=== PATIENT | female | born 1955 | race Caucasian/White ===

== ENCOUNTER → 2016-04-26 | Outpatient (CLI) | payer MEDICARE, OTHER ==
--- NOTE | 2016-04-26 13:09 | KCIC ---
PROCEDURE Bilateral digital screening mammogram. HISTORY 60-year-old female presents for screening mammography. TECHNIQUE Full field digital craniocaudal and mediolateral oblique views of both breasts are obtained. Computer-aided detection is applied. COMPARISON 08/10/2009 FINDINGS Breast parenchymal composition: Level B - Scattered fibroglandular densities. There is no suspicious mass, calcification or architectural distortion within either breast. IMPRESSION BI-RADS category 2: Benign finding. Annual mammography is recommended. Mammography is not 100% sensitive in detecting breast cancer. Therefore, a self breast exam and a clinical breast exam are very important. A negative mammogram does not negate a clinically suspicious finding and should not result in a delay in biopsying a clinically suspicious abnormality. This patient's information has been entered into a reminder system for the patient to be notified with the results of this examination and a target date for her next mammograms. Electronically signed by: Zee Hobson (Apr 26, 2016 13:07:48)
== END | disposition home or self-care (01) ==
LOC: KCIC MAMMO 12:33
PROVIDERS: ATTEND Family Medicine
DX: Z12.31 Encounter for screening mammogram for malignant neoplasm of breast (principal)
CPT/HCPCS: G0202; 77067

== ENCOUNTER → 2016-06-13 | Outpatient (CLI) | payer MEDICARE, OTHER ==
--- NOTE | 2016-06-13 14:57 | KCIC ---
Ultrasound pelvis with transvaginal Indication: Postmenopausal bleeding. Transabdominal and transvaginal pelvic sonography was performed. The uterus measures 8.7 x 5.4 x 4.1 centimeters. The endometrium is abnormally thickened at 17 millimeters. Endometrium is heterogeneous. There are cystic regions within the endometrium. Previously the endometrium measured 15 millimeters on the exam from 05/16/2014. No myometrial mass is detected. The right ovary measures 2.6 x 2.1 x 1.6 centimeters and the left ovary measures 1.5 x 1.8 x 2.3 centimeters. Impression: Continued abnormally thickened and heterogeneous appearance to the endometrium when compared with examination from approximately 2 years earlier. While this could be on the basis of hyperplasia, endometrial polyp or neoplasm cannot be entirely excluded. Electronically signed by: Chris Gomez MD (Jun 13, 2016 14:55:39)
== END | disposition home or self-care (01) ==
LOC: KCIC US 12:05
PROVIDERS: ATTEND Family Medicine
DX: N95.0 Postmenopausal bleeding (principal)
CPT/HCPCS: 76830; 76856

== ENCOUNTER 2016-10-14 08:32 | Inpatient (IN) | payer MEDICARE, OTHER ==
[~2016-10-14] VITALS: Ht 172.7 cm; Wt 110.0 kg
[2016-10-14] VITALS (10 sets, daily range): BP systolic 112–145; BP diastolic 56–75
[~2016-10-14 08:32] MED LIST: ASPI-482 PO; BIOT1CAP3 PO; BUPIVAC MPF-EPI 0.5%-1:200000 30 ML VIAL. ONE; CHOL100013 PO; EYE; HYDR12.53 PO; HYDROmorphone 2 MG/ML VIAL IV PRN; INSU100V13 SQ; IOHEXOL 300 MG/ML 50 ML VIAL. ONE; IV RINGERS,LACTATED 1000ML 1,000 ML IV SCH; LIDOCAINE 1% 1 ML SYRINGE. ID PRN; MECL12.52 PO; METF-620 PO; METO50TA2 PO; MORPHINE SULFATE 2 MG/ML DISP.SYRIN. IV PRN; MULT-208 PO; OMEG1CAP6 PO; OMEP20CA9 PO; ONDANSETRON PF 4 MG/2 ML VIAL. IV PRN; PROCHLORPERAZINE 10 MG/2 ML VIAL. IV PRN; UBID30CA9 PO; VIT59LIQ SL; fentaNYL PF VIAL 100 MCG/2 ML VIAL IV PRN
[2016-10-14] MEDS ORDERED: LIDOCAINE 2% PF Vial for OR 5 ML VIAL. ONE (08:38)
[2016-10-14] MEDS ORDERED: PROPOFOL 20 ML IV ONE ×3 (08:38→09:54)
[2016-10-14] MEDS ORDERED: DEXAMETHASONE SOD PHOS 20 MG/5 ML VIAL. ONE (08:39)
[2016-10-14] MEDS ORDERED: fentaNYL PF VIAL 250 MCG/5 ML VIAL ONE (08:39)
[2016-10-14] MEDS ORDERED: ONDANSETRON PF 4 MG/2 ML VIAL. ONE (08:39)
[2016-10-14] MEDS ORDERED: SUCCINYLCHOLINE 200 MG/10 ML VIAL. ONE (08:39)
[2016-10-14] MEDS ORDERED: NEOSTIGMINE 10 MG/10 ML VIAL. ONE (09:43)
[2016-10-14] MEDS ORDERED: GLYCOPYRROLATE 1 MG/5 ML VIAL. ONE (09:43)
[2016-10-14] MEDS ORDERED: EPINEPHrine 1 MG/ML VIAL ONE (09:45)
[2016-10-14] MEDS ORDERED: ESMOLOL 100 MG/10 ML VIAL. IV ONE (09:52)
[2016-10-14] MEDS ORDERED: SEVOFLURANE 31 TO 60 MINUTES. IH ONE (10:13)
[2016-10-14] MEDS ORDERED: SURGICEL HEMOSTAT 4X8 EACH. ONE (10:58)
[2016-10-14] MEDS ORDERED: fentaNYL PF VIAL 100 MCG/2 ML VIAL ONE ×2 (10:59→12:20)
--- NOTE | 2016-10-14 11:00 | RAD ---
Intraoperative cholangiogram, 10/14/2016: History: Cholecystectomy 4 spot films surgery are presented for review. Contrast has been injected into the cystic duct remnant. 18 seconds of fluoroscopy time was utilized. There is good flow of contrast into the duodenum at the ampulla. No filling defect is seen in the common duct to suggest a retained calculus. The incompletely opacified intrahepatic ducts are unremarkable. Minimal contrast extravasation at the catheter insertion site in the cystic duct is likely on a technical basis. IMPRESSION: No significant abnormality is detected.
--- NOTE | 2016-10-14 11:32 | EKG ---
[facility] [address] [place] [address] Test Date: 2016-10-14 Test Time: 11:29:42 Pat Name: CAROLIN COOK Department: Room: Gender: F [employer] Handler: DIGNA : 1955 Requested By: SIVA BARILLAS Order Number: [id number] Reading MD: Rebecca Paulino Measurements Intervals [place] Rate: 64 P: -49 [place]: 214 QRS: -11 QRSD: 110 T: 114 QT: 460 QTc: 474 Interpretive Statements SINUS RHYTHM LEFTWARD AXIS ST & T ABNORMALITY, CONSIDER HIGH LATERAL ISCHEMIA ABNORMAL ECG Electronically Signed On 10-16-2016 20:15:59 CDT by Rebecca Paulino
[2016-10-14] MEDS: fentaNYL PF VIAL 100 MCG/2 ML VIAL IV PRN ×4 (11:43→23:47)
[2016-10-14] MEDS ORDERED: ceFAZolin 2GM PREMIX 2 GM/50 ML BAG IV ONE (12:00)
--- NOTE | 2016-10-14 12:36 | PDOC ---
BRIEF OPERATIVE NOTE Date: Oct 14, 2016 Pre-Op Diagnosis symptomatic cholelithiasis Post-Op Diagnosis same Procedure Performed l/s cholecystectomy with cholangiograms Surgeon Ishmael Algology Teacher Maryse CUTLER Anesthesia Type: General Blood Loss 25cc IV Fluid 800cc Specimens Obtained GB Findings mildly edematous GB, normal grams. Complications short run of SVT at start of case OPerative Note Wk # [id number] MINISTERIO PUGA MD Oct 14, 2016 12:36
--- NOTE | 2016-10-14 13:04 | OP ---
DATE OF SURGERY: 10/14/2016 PREOPERATIVE DIAGNOSIS: Symptomatic cholelithiasis. POSTOPERATIVE DIAGNOSIS: Symptomatic cholelithiasis. PROCEDURE: Laparoscopic cholecystectomy with cholangiogram. SURGEON: Palmer Puga MD CHIEF SECURITY OFFICER: HE Esposito ANESTHESIA: General endotracheal. ESTIMATED BLOOD LOSS: 25 mL. INTRAVENOUS FLUID: 800 mL. INDICATIONS: The patient is a 60-year-old with previous ventral incisional hernia repair, who has gallstones and right upper quadrant pain. She is brought for cholecystectomy. OPERATIVE FINDINGS: Omental adhesions were present in the lower abdomen from previous hernia repair. The liver was a little generous. The gallbladder was mildly edematous with a tongue of liver extending on to the fundus. Remainder of the abdomen failed to reveal obvious abnormalities. DESCRIPTION OF PROCEDURE: The patient was brought to the operating suite, given a general endotracheal anesthetic and the abdomen was prepped and draped in usual sterile fashion. A supraumbilical incision was chosen infiltrated with 0.5% Marcaine with epinephrine and incised and a 5 mm Visiport used to gain access into the abdominal cavity, taking care to avoid injury to abdominal contents. Pneumoperitoneum was established. Camera inserted and inspection carried out with results as noted above. With the table in reverse Trendelenburg rolled to the left, the epigastric, midclavicular, and lateral ports were placed under direct vision. The gallbladder was retracted superolaterally and omental adhesions were carefully taken down with cautery and blunt dissection, avoiding injury to the adjacent bowel. This allowed exposure of the cystic duct and cystic artery. The duct was clipped on the gallbladder side. Cholangiograms were made. These were normal. In light of this, the catheter was removed. The cystic duct was clipped x 3 and divided, taking care to avoid injury or compromise the common duct. The cystic artery was clipped and divided and the gallbladder was freed from the bed with cautery dissection and placed in an EndoCatch bag. Hemostasis obtained in the fossa with cautery and a small piece of Surgicel. A 19-Angolan round Miguel Angel drain was brought to the epigastric port out the lateral ports, sewn to the skin with silk stitch and left in the subhepatic space for postoperative drainage. Table returned to level. Gallbladder delivered through the epigastric incision. Epigastric incision closed with interrupted 0 Vicryl suture. Intra-abdominal pressure decreased to 6 cm of water. No bleeding from the epigastric closure or from the midclavicular or lateral port site or the drain site. Abdomen decompressed, camera slowly removed, no bleeding seen. Skin incisions closed with subcuticular 4-0 Monocryl. Steri-Strips and sterile dressings applied. The patient awakened from her anesthetic and taken to the recovery room in satisfactory condition. PALMER PUGA MD DR: SAMM/yeison JOB#: [id number] / [id number]
[2016-10-14] MEDS ORDERED: ONDANSETRON PF 4 MG/2 ML VIAL. IV PRN (13:15)
[2016-10-14] MEDS ORDERED: INSULIN ASPART 300 UNITS/3 ML INSULN.PEN SQ SCH (13:15)
[2016-10-14] MEDS ORDERED: diphenhydrAMINE 50 MG/ML VIAL IV PRN (13:15)
[2016-10-14] MEDS ORDERED: HYDROmorphone 2 MG/ML VIAL IV PRN (13:15)
[2016-10-14] MEDS ORDERED: INSULIN ASPART 100 UNIT/ML 10ML VIAL. SQ ONE ×2 (13:15→13:30)
[2016-10-14] MEDS ORDERED: 0.9 % SODIUM CHLORIDE 10 ML DISP.SYRIN. IV PRN (13:15)
[2016-10-14] MEDS ORDERED: oxyCODONE/APAP 5/325 1 TAB TABLET PO PRN (13:15)
[2016-10-14] MEDS ORDERED: diphenhydrAMINE HCL 25 MG CAPSULE PO PRN (13:15)
[2016-10-14] MEDS ORDERED: DEXTROSE 50% 25 GM / 50ML DISP.SYRIN. IV PRN (13:15)
[2016-10-14] MEDS: OMEGA-3 FATTY ACIDS/FISH OIL 1,000 MG CAPSULE. PO SCH ×2 (14:00→21:51)
[2016-10-14] MEDS: POTASSIUM CL 20MEQ-0.45% NACL 1,000 ML IV SCH (14:52)
[2016-10-14] MEDS: MECLIZINE HCL 12.5 MG TABLET. PO SCH ×2 (14:52→21:51)
[2016-10-14] MEDS: oxyCODONE/APAP 5/325 1 TAB TABLET PO PRN ×2 (17:20→22:03)
[2016-10-14] MEDS ORDERED: INSULIN DETEMIR 300 UNITS/3 ML INSULN.PEN. SQ SCH (21:00)
[2016-10-14] MEDS: DOCUSATE SODIUM 100 MG CAPSULE. PO SCH (21:51)
[2016-10-14] MEDS: METOPROLOL TART IMMED RELEASE 50 MG TABLET. PO SCH (21:54)
[2016-10-15 03:07] VITALS: BP 126/54
[2016-10-15] MEDS: POTASSIUM CL 20MEQ-0.45% NACL 1,000 ML IV SCH (04:05)
[2016-10-15] MEDS: oxyCODONE/APAP 5/325 1 TAB TABLET PO PRN ×3 (04:10→14:03)
[2016-10-15 07:00] VITALS: BP 125/70
[2016-10-15] MEDS ORDERED: PANTOPRAZOLE 40 MG TABLET.DR. PO SCH (07:30)
[2016-10-15] MEDS ORDERED: ASPIRIN ENTERIC COATED 81 MG TABLET.DR. PO SCH (08:00)
[2016-10-15] MEDS: MECLIZINE HCL 12.5 MG TABLET. PO SCH ×2 (08:29→14:02)
[2016-10-15] MEDS: DOCUSATE SODIUM 100 MG CAPSULE. PO SCH (08:29)
[2016-10-15] MEDS: OMEGA-3 FATTY ACIDS/FISH OIL 1,000 MG CAPSULE. PO SCH ×2 (08:30→14:02)
[2016-10-15] MEDS: METOPROLOL TART IMMED RELEASE 50 MG TABLET. PO SCH (08:30)
[2016-10-15] MEDS ORDERED: hydroCHLOROthiazide 12.5 MG CAPSULE PO SCH (09:00)
--- NOTE | 2016-10-15 10:11 | PDOC ---
NATHAN URENA INTERNATIONAL PROJECT ENGINEER 10/15/16 1011: SURGICAL PROGRESS NOTE Subjective tolerating clears pain improved today no n/v urinating Vital Signs Vital Signs Date Time Temp Pulse Resp B/P (MAP) Pulse Ox O2 Delivery O2 Flow Rate FiO2 10/15/16 08:34 Room Air 10/15/16 08:30 57 125/70 10/15/16 08:00 2.0 10/15/16 07:00 97.9 16 97 97.9 I&O Intake and Output 10/15/16 07:00 Intake Total 5190 ml Output Total 50 ml Balance 5140 ml Intake Oral 720 ml IV Total 4470 ml Output Drainage Total 50 ml # Voids 3 General: Alert, Oriented X3, Cooperative, No acute distress Abdomen: Soft, Other (incisional TTP, zander serosang) Labs Laboratory Tests Test 10/14/16 09:10 10/14/16 11:10 10/14/16 13:06 10/14/16 21:52 Glucose (Fingerstick) 169 mg/dL (70-99) 235 mg/dL (70-99) 246 mg/dL (70-99) 325 mg/dL (70-99) Test 10/15/16 07:30 Glucose (Fingerstick) 218 mg/dL (70-99) Laboratory Tests Test 10/14/16 11:10 10/14/16 13:06 10/14/16 21:52 10/15/16 07:30 Glucose (Fingerstick) 235 mg/dL (70-99) 246 mg/dL (70-99) 325 mg/dL (70-99) 218 mg/dL (70-99) Problem List s/p lap cordell advance diet cardiac consult pending--short run of SVT intraoperatively Problems: MINISTERIO PUGA MD 10/15/16 1331: SURGICAL PROGRESS NOTE Assessment/Plan pt seen and examined agree with above appreciate cardiology input await echo results Problems: NATHAN URENA APRN Oct 15, 2016 10:11 MINISTERIO PUGA MD Oct 15, 2016 13:31
[2016-10-15 11:00] VITALS: BP 150/60
--- NOTE | 2016-10-15 11:44 | PDOC2 ---
GALA CHRISTY POST [facility] REGISTERED NURSE 10/15/16 1144: CARDIAC CONSULT DATE OF CONSULT Date of Consult DATE: 10/15/16 TIME: 11:28 REASON FOR CONSULT Reason for Consult: SVT REFERRING PHYSICIAN Referring Physician: Dr. Quiñones SOURCE Source: Chart review, Patient HISTORY OF PRESENT ILLNESS HISTORY OF PRESENT ILLNESS This is a 60 yo female who presented for elective cholecystectomy. Had short run of SVT intraoperatively, which prompted this consult. No further episodes noted on telemetry. Patient denies any chest pain, palpitations, dizziness, diaphoresis, SOA, LE edema, or nausea/vomiting. Does have some mild incisional pain, presently. H/o aortic valve replacement in 2012 at [place]. Reports having normal cardiac cath at that time. Has recently been following with after school program assistant at [facility]. No recent echo. Report compliance with medication. Took metoprolol morning of surgery. PAST MEDICAL HISTORY Cardiovascular: HTN, Hyperlipidemia, Valve insufficiency (s/p bioprosthetic aortic valve replacement ) Pulmonary: No pertinent hx GI: No pertinent hx Heme/Onc: No pertinent hx Hepatobiliary: No pertinent hx Psych: Anxiety Musculoskeletal: Osteoarthritis Rheumatologic: No pertinent hx Infectious disease: No pertinent hx ENT: No pertinent hx Renal/: Chronic renal insuff Endocrine: Diabetes Dermatology: No pertinent hx PAST SURGICAL HISTORY Past Surgical History: Cholecystectomy, Tubal Ligation, Other (valve replacement ) FAMILY HISTORY Family History: Cancer (breast), Hypertension SOCIAL HISTORY Smoke: Quit (recently ) ALCOHOL: none Drugs: None Lives: with Family CURRENT MEDICATIONS CURRENT MEDICATIONS Current Medications Medications (Trade) Dose Ordered Sig/Mariano Route PRN Reason Start Time Stop Time Status Last Admin Dose Admin Potassium Chloride/Sodium Chloride 1,000 ml @ 75 mls/hr [id number] IV 10/14/16 13:04 10/15/16 04:05 Oxycodone/ Acetaminophen (Percocet 5/325) 2 tab PRN Q4HRS PRN PO MODERATE PAIN, SEVERE PAIN 10/14/16 13:15 10/15/16 08:34 Docusate Sodium (Colace) 100 mg BID PO 10/14/16 21:00 10/15/16 08:29 Insulin Aspart (NovoLOG VIAL) 6 unit 1X ONCE SQ 10/14/16 13:30 10/14/16 13:31 DC 10/14/16 13:23 Aspirin (Ecotrin) 81 mg DAILYWBKFT PO 10/15/16 08:00 10/15/16 08:29 Hydrochlorothiazide (Microzide) 12.5 mg DAILY PO 10/15/16 09:00 10/15/16 08:30 Meclizine HCl (Antivert) 12.5 mg TID PO 10/14/16 14:00 10/15/16 08:29 Metformin HCl (Glucophage) 1,000 mg BIDWMEALS PO 10/14/16 17:00 10/15/16 08:30 Metoprolol Tartrate (Lopressor) 50 mg BID PO 10/14/16 21:00 10/15/16 08:30 Fish Oil (Fish Oil) 1,000 mg TID PO 10/14/16 14:00 10/15/16 08:30 Insulin Detemir (Levemir) 76 units QHS SQ 10/14/16 21:00 10/14/16 21:59 Pantoprazole Sodium (Protonix) 40 mg DAILYAC PO 10/15/16 07:30 10/15/16 06:29 ALLERGIES ALLERGIES: Coded Allergies: lisinopril (Verified Adverse Reaction, Intermediate, COUGH, 10/14/16) simvastatin (Verified Adverse Reaction, Intermediate, WEAKNESS, 10/14/16) ROS Review of System 14 point ROS conducted with pertinent positives noted above in HPI. PHYSICAL EXAM General: Alert, Oriented X3, Cooperative, No acute distress, Other HEENT: Atraumatic, Mucous membr. moist/pink Lungs: Clear to auscultation, Normal air movement Heart: Regular rate, Normal S1, Normal S2, Other (3/6 systolic murmur) Abdomen: Soft, Other (surgical lap sites) Extremities: No edema, Normal pulses Skin: No significant lesion Neuro: Normal speech, Sensation intact Psych/Mental Status: Mental status NL, Mood NL MUSCULOSKELETAL: Osteoarthritic changes both hands VITALS VITALS Vital Signs Date Time Temp Pulse Resp B/P (MAP) Pulse Ox O2 Delivery O2 Flow Rate FiO2 10/15/16 08:34 Room Air 10/15/16 08:30 57 125/70 10/15/16 08:00 2.0 10/15/16 07:00 97.9 16 97 97.9 LABS Lab: Laboratory Tests Test 10/14/16 13:06 10/14/16 21:52 10/15/16 07:30 Glucose (Fingerstick) 246 mg/dL (70-99) 325 mg/dL (70-99) 218 mg/dL (70-99) ASSESSMENT/PLAN ASSESSMENT/PLAN 1. Ventricular arrhythmia 2. S/p cholecystectomy 3. Hypertension 4. Hyperlipidemia 5. Bioprosthetic aortic valve replacement 6. Diabetes Recommendations Continue BB for rate control. Check BMP, Mg, TSH, lipids Obtain echo to assess LV function/evaluate aortic valve. Supportive care Routine post-operative management Problems: DURGA HALE MD 10/16/16 0841: CARDIAC CONSULT ALLERGIES ALLERGIES: Coded Allergies: lisinopril (Verified Adverse Reaction, Intermediate, COUGH, 10/14/16) simvastatin (Verified Adverse Reaction, Intermediate, WEAKNESS, 10/14/16) ASSESSMENT/PLAN ASSESSMENT/PLAN Late entry for 10/15/2016. Pt. seen and examined. Agree with above DRIER TENDER Note. No acute issues post-op Continue b-rey echo wnl supportive care pls call with questions. She will f/u with her usual after school program assistant. Problems: GALA CHRISTY APRN Oct 15, 2016 11:44 DURGA HALE MD Oct 16, 2016 08:41
[2016-10-15] MEDS ORDERED: MAG HYDROX/ALUMINUM HYD/SIMETH 30 ML ORAL.SUSP PO PRN (13:15)
--- NOTE | 2016-10-15 13:47 | PATHOLOGY ---
PATHOLOGY REPORT * * * * * * * * FINAL DIAGNOSIS: Gallbladder and attached segment of liver tissue, laparoscopic cholecystectomy: - Cholelithiasis. - Chronic fibrosing cholecystitis. - Benign pericystic duct lymph node. 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 COMMENT: There is no evidence of malignancy. (JPM:mml; 10/15/2016) REPORT ELECTRONICALLY SIGNED BY: Erwin Thapa M.D. DATE/TIME: 10/15/2016 13:46 * * * * * * * * GROSS PATHOLOGY: Received in formalin labeled "Nesha Cook, gallbladder sac with contents," is a 9.7 x 3.8 x 3.5 cm, partially opened gallbladder with yellow red serosal surfaces. Near the fundus there is a large gaping defect of the serosa, exposing a large underlying calculus. This area measures 1.9 x 1.6 cm in diameter. Opening the gallbladder reveals yellow red, velvety mucosa and an average wall thickness of 0.4 cm. Calculi are present and no masses are noted grossly. The largest calculus measures up to 3.5 cm in greatest dimension. There are areas of thickening of the gallbladder wall of the fundus, near the large calculus. These areas show a yellow sanchez, somewhat gritty cut surface. Commercial Finance Manager sections from the body and fundus are submitted along with the proximal margin in cassette A1. Along the serosal surface of the neck of the gallbladder there is a rubbery firm, pink sanchez lymph node, measuring 1.0 cm in maximum dimensions. This is submitted in toto, also in cassette A1. (JPM; 10/14/16) INITIAL CPT CODE(S): A; 82171 Professional services performed by [facility] at [address] [address] Technical services performed by [facility] at [address] [place] [address], [address], [place] [address]. SPECIMEN(S) RECEIVED: A.Gallbladder sac with contents CLINICAL HISTORY: Gallstones PATIENT: NESHA COOK /AGE: 10 1955 (Age: 60) PATIENT #: [id number] ALT CASE #: SPECIMEN COLLECTION DATE: 10/14/2016 SPECIMEN RECEIVED DATE: 10/14/2016 [facility] - [id number] [address] - PHONE: [phone] * * * END OF REPORT * * *
[2016-10-15 14:17] LABS: CALCIUM 8.9 mg/dL (8.5-10.1); CREATININE 1.4 mg/dL (0.6-1.0); GFR 38.5; MAGNESIUM 1.3 mg/dL (1.8-2.4); POTASSIUM 3.8 mmol/L (3.5-5.1)
[2016-10-15 15:40] VITALS: BP 124/72
--- NOTE | 2016-10-15 16:01 | CARD ---
APPROVED REPORT EXAM: Two-dimensional and M-mode echocardiogram with Doppler and color Doppler. Other Information Quality : Good INDICATION S/P Aortic Valve Replacement, Ventricular Arrythmia 2D DIMENSIONS RVDd3.1 (2.9-3.5cm)Left Atrium(2D)4.5 (1.6-4.0cm) IVSd1.4 (0.7-1.1cm)Aortic Root(2D)2.9 (2.0-3.7cm) LVDd4.2 (3.9-5.9cm)LVOT Diameter2.2 (1.8-2.4cm) PWd1.1 (0.7-1.1cm)LVDs2.5 (2.5-4.0cm) FS (%) 30.0 %SV56.5 ml LVEF(%)60.0 (>50%) Aortic Valve AoV Peak Ilya.166.8cm/sAoV VTI37.7cm AO Peak GR.11.1mmHgLVOT Peak Ilya.65.5cm/s LVOT VTI 17.80cmAO Mean GR.6mmHg AUSTIN (VMAX)1.23xe5DYS (VTI)1.76cm2 Mitral Valve MV E Bteksoxp60.3cm/sMV DECEL [id number] MV A Nphagkni60.0cm/sMV TLB50yd E/A Ratio2.2MVA (PHT)4.67cm2 TDI E/Lateral E'9.7E/Medial E'12.4 Tricuspid Valve TR P. Jauilgqn006wh/sRAP KSTNTUIR2klJf TR Peak Gr.64zyAyFNDS87msQk Pulmonary Vein S1 Zrnyiyfh92.5cm/sD2 Ncirnjai19.3cm/s LEFT VENTRICLE The left ventricle is normal size. There is mild asymmetric septal left ventricular hypertrophy. The left ventricular systolic function is normal and the ejection fraction is within normal range. The Ej ection Fraction is 55-60%. There is normal LV segmental wall motion. RIGHT VENTRICLE The right ventricle is normal size. The right ventricular systolic function is normal. ATRIA The left atrium is mildly dilated. The right atrium size is normal. The interatrial septum is intact with no evidence for an atrial septal defect or patent foramen ovale as noted on 2-D or Doppler imagi ng. AORTIC VALVE Doppler and Color Flow revealed no significant aortic regurgitation. There is no significant aortic v alvular stenosis. There is a bioprosthetic aortic valve prosthesis. Bioprosthesis leaflets are thin a nd move normally. MITRAL VALVE The mitral valve is normal in structure and function. There is no evidence of mitral valve prolapse. There is no mitral valve stenosis. Doppler and Color-flow revealed mild mitral regurgitation. TRICUSPID VALVE The tricuspid valve is normal in structure and function. Doppler and Color Flow revealed trace to mil d tricuspid regurgitation. The PA pressure was estimated at 33 mmHg. There is no tricuspid valve sten osis. PULMONIC VALVE Doppler and Color Flow revealed no pulmonic valvular regurgitation. There is no pulmonic valvular desirae nosis. GREAT VESSELS The aortic root is normal in size. The ascending aorta is not well seen. The IVC is dilated and colla pses >50% with inspiration. PERICARDIAL EFFUSION There is no evidence of significant pericardial effusion. Critical Notification Critical Value: No <Conclusion> The left ventricular systolic function is normal and the ejection fraction is within normal range. Th e Ejection Fraction is 55-60%. There is normal LV segmental wall motion. There is a bioprosthetic aortic valve prosthesis. Bioprosthesis leaflets are thin and move normally. Doppler and Color-flow revealed mild mitral regurgitation. Doppler and Color Flow revealed trace to mild tricuspid regurgitation. The PA pressure was estimated at 33 mmHg.
== END 2016-10-15 18:40 | disposition home or self-care (01) | DRG 418 ==
LOC: SURG 08:32 → 4 NORTH 13:30
PROVIDERS: ADMIT Surgery; ATTEND Surgery
PROC: BF131ZZ Fluoroscopy of Gallbladder and Bile Ducts using Low Osmolar Contrast (ICD-10-PCS; 2016-10-14)
PROC: 0FT44ZZ Resection of Gallbladder, Percutaneous Endoscopic Approach (ICD-10-PCS; principal; 2016-10-14 10:00)
DX: K80.20 Calculus of gallbladder without cholecystitis without obstruction (principal); I47.1 Supraventricular tachycardia; E11.22 Type 2 diabetes mellitus with diabetic chronic kidney disease; E66.9 Obesity, unspecified; E78.5 Hyperlipidemia, unspecified; G89.29 Other chronic pain; M19.90 Unspecified osteoarthritis, unspecified site; F41.9 Anxiety disorder, unspecified; Z98.51 Tubal ligation status; M10.9 Gout, unspecified; Z68.36 Body mass index [BMI] 36.0-36.9, adult; Z90.89 Acquired absence of other organs; Z83.3 Family history of diabetes mellitus; Z79.82 Long term (current) use of aspirin; Z79.899 Other long term (current) drug therapy; Z79.4 Long term (current) use of insulin; Z95.3 Presence of xenogenic heart valve; Z82.49 Family history of ischemic heart disease and other diseases of the circulatory system; Z80.3 Family history of malignant neoplasm of breast; Z88.8 Allergy status to other drugs, medicaments and biological substances; I12.9 Hypertensive chronic kidney disease with stage 1 through stage 4 chronic kidney disease, or unspecified chronic kidney disease; N18.9 Chronic kidney disease, unspecified
CPT/HCPCS: 36415; 74300; 80048; 82962; 83735; 84443; 88304; 93005; 93306; C1769; J0171; J0330; J0690; J1100; J1815; J2405; J2704; J2710; J3010; J3490; J7030; J8597; Q9967; J2001

== ENCOUNTER → 2016-12-10 | Outpatient (CLI) | payer MEDICARE, OTHER ==
[~2016-12-10] MED LIST changes: -BUPIVAC MPF-EPI 0.5%-1:200000 30 ML VIAL. ONE; -HYDROmorphone 2 MG/ML VIAL IV PRN; -IOHEXOL 300 MG/ML 50 ML VIAL. ONE; -IV RINGERS,LACTATED 1000ML 1,000 ML IV SCH; -LIDOCAINE 1% 1 ML SYRINGE. ID PRN; -MORPHINE SULFATE 2 MG/ML DISP.SYRIN. IV PRN; -ONDANSETRON PF 4 MG/2 ML VIAL. IV PRN; -PROCHLORPERAZINE 10 MG/2 ML VIAL. IV PRN; -fentaNYL PF VIAL 100 MCG/2 ML VIAL IV PRN
== END | disposition home or self-care (01) ==
LOC: PCVCCLINIC 13:38
PROVIDERS: ATTEND Internal Medicine Cardiovascular Disease
DX: I35.9 Nonrheumatic aortic valve disorder, unspecified (principal); I44.0 Atrioventricular block, first degree; I12.9 Hypertensive chronic kidney disease with stage 1 through stage 4 chronic kidney disease, or unspecified chronic kidney disease; E11.22 Type 2 diabetes mellitus with diabetic chronic kidney disease; N18.9 Chronic kidney disease, unspecified; Z95.4 Presence of other heart-valve replacement; Z98.51 Tubal ligation status; Z72.0 Tobacco use; Z88.8 Allergy status to other drugs, medicaments and biological substances; Z79.82 Long term (current) use of aspirin; Z79.84 Long term (current) use of oral hypoglycemic drugs; Z79.4 Long term (current) use of insulin; Z79.899 Other long term (current) drug therapy
CPT/HCPCS: 93005; G0463

== ENCOUNTER → 2016-12-18 | Outpatient (CLI) | payer MEDICARE, OTHER ==
--- NOTE | 2016-12-18 15:48 | PCVCIMAG ---
APPROVED REPORT Study performed: 12/18/2016 14:23:48 EXAM: Comprehensive 2D, Doppler, and color-flow Echocardiogram Patient Location: Echo lab Status: routine BSA: 2.14 HR: 62 bpm Rhythm: NSR Other Information Study Quality: Adequate Risk Factors: Cardiac Risk Factors: HTN, Hyperlipidemia Indications Hypertension/HDD Hyperlipidemia. Bovine AVR. 2D Dimensions LVEF(%): 59.58 (>50%) IVSd: 9.58 (7-11mm)LVOT Diam: 17.56 (18-24mm) LVDd: 47.84 mm PWd: 10.22 (7-11mm)Ascending Ao: 32.81 (22-36mm) LVDs: 32.69 (25-40mm) Left Atrium: 50.39 (27-40mm) Aortic Root: 27.49 mm LV Single Plane 4CH: 45.59 % LV Single Plane 2CH: 58.17 %Murry's LVEF: 51.88 % Biplane EF: 52.7 % Volumes Left Atrial Volume (Systole) Single Plane 4CH: 45.96 mLSingle Plane 2CH: 42.67 mL LA ESV Index: 22.00 mL/m2 Aortic Valve AoV Peak Ilya.: 2.00 m/s AO Peak Gr.: 16.06 mmHgLVOT Max P.68 mmHg LVOT Max V: 1.08 m/s AUSTIN Vmax: 1.31 cm2 Mitral Valve E/A Ratio: 1.5 MV Decel. Time: 257.27 ms MV E Max Ilya.: 0.83 m/s MV A Ilya.: 0.54 m/s IVRT: 89.97 ms TDI E/Lateral E': 10.38E/Medial E': 11.86 Medial E' Ilya.: 0.07 m/s Lateral E' Ilya.: 0.08 m/s Pulmonary Valve PV Peak Gr.: 1.65 mmHg Pulmonary Vein P Vein S: 0.55 m/sP Vein A: 0.23 m/s P Vein D: 0.80 m/sP Vein A Dur.: 69.2 msec P Vein S/D Ratio: 0.69 Tricuspid Valve TR Peak Ilya.: 2.20 m/s TR Peak Gr.: 19.39 mmHg Left Ventricle The left ventricle is normal size. There is normal LV segmental wall motion. There is normal left ventricular wall thickness. Left ventricular systolic function is normal. The left ventricular ejection fraction is within the normal range. LVEF is 55-60%. Right Ventricle The right ventricle is normal size. The right ventricular systolic function is normal. Atria The left atrium size is normal. The right atrium size is normal. Aortic Valve [employer] with normal function in the aortic valve position. No aortic regurgitation is present. There is no aortic valvular stenosis. Mitral Valve The mitral valve is normal in structure. Mild to moderate mitral regurgitation. No evidence of mitral valve stenosis. Tricuspid Valve The tricuspid valve is normal in structure. Mild to moderate tricuspid regurgitation. Pulmonary artery pressure is 27mmhg. Pulmonic Valve The pulmonary valve is normal in structure. There is no pulmonic valvular regurgitation. Great Vessels The aortic root is normal in size. IVC is normal in size and collapses with >50% inspiration Pericardium There is no pericardial effusion. <Conclusion> The left ventricle is normal size. Left ventricular systolic function is normal. The right ventricle is normal size. The left atrium size is normal. Keo [employer] with normal function in the aortic valve position. Mild to moderate mitral regurgitation. Mild to moderate tricuspid regurgitation. Pulmonary artery pressure is 27mmhg.
--- NOTE | 2016-12-18 15:51 | PCVCIMAG ---
APPROVED REPORT Exam: Stress Echocardiogram Indication: Hyperlipidemia, Hypertension, AVR, Patient Location: Echo lab Stress Nurse: Henny Painting RN Status: routine Ht: 5 ft 8 in HR: 59 bpm BP: 180/90 mmHg Rhythm: NSR Procedure The patient underwent an Exercise Stress Test using the Souleymane Protocol. Blood pressure, heart rate, and EKG were monitored. An Echocardiogram was performed by biodiesel process control technician in four stages in quad fashion. At peak stress, four selected images were obtained and placed side by side with resting images for comparison. Stress Test Details Stress Test: Exercise stress testing was performed using a Souleymane protocol. HR Resting HR: 59 bpmMax Heart Rate (APMHR): 160 bpm Max HR Achieved: 103 bpmTarget HR (85% APMHR): 136 bpm % of APMHR: 64 HR response to stress: Blunted HR response to stress BP Resting BP: 160/90 mmHg Max BP: 180/90 mmHg ECG Resting ECG: Sinus Rhythm Stress ECG: Sinus Rhythm ST Change: Nondiagnostic low heart rate Clinical Reason for Termination: Knee Pain. Stress Symptoms: Leg Fatigue Exercise duration: 6 min 45 sec Highest Stage Achieved: Stage 3: 3.4 mph at 14% grade. Exercise capacity: 9.20 METs Overall Exercise Capacity for Age: Poor Stress ECG Conclusion Submaximal Stress Test due to knee pain. Patient took beta rey. Pre-Stress Echo The resting Echocardiogram showed normal left ventricular contractility with an estimated Ejection Fraction of about 55-60%. Post-Stress Echo The stress Echocardiogram showed normal left ventricular contractility with an estimated Ejection Fraction of about 55-60%. Clinical No clinical or ECG evidence for ischemia. Conclusion Clinical Response: Non-ischemic Exercise Capacity: Below Average Stress ECG Response: Indeterminant Stress Echo Images: Non-ischemic Non-diagnostic study due to inability of the patient to achieve 85% of maximal HR. Other Information Study Quality: Adequate Critical Notification Critical Value: No <Conclusion> Non-diagnostic study due to inability of the patient to achieve 85% of maximal HR.
== END | disposition home or self-care (01) ==
LOC: PCVCIMAG 14:00
PROVIDERS: ATTEND Internal Medicine Cardiovascular Disease
DX: I08.1 Rheumatic disorders of both mitral and tricuspid valves (principal); E78.00 Pure hypercholesterolemia, unspecified; I12.9 Hypertensive chronic kidney disease with stage 1 through stage 4 chronic kidney disease, or unspecified chronic kidney disease; N18.9 Chronic kidney disease, unspecified; E11.22 Type 2 diabetes mellitus with diabetic chronic kidney disease; I44.0 Atrioventricular block, first degree; Z79.82 Long term (current) use of aspirin; Z79.84 Long term (current) use of oral hypoglycemic drugs; Z88.8 Allergy status to other drugs, medicaments and biological substances; Z79.4 Long term (current) use of insulin; Z95.2 Presence of prosthetic heart valve; Z79.899 Other long term (current) drug therapy; Z98.51 Tubal ligation status; Z72.0 Tobacco use
CPT/HCPCS: 93306; 93351; G0463

== ENCOUNTER → 2017-05-16 | Outpatient (CLI) | payer MEDICARE, OTHER | END | disposition home or self-care (01) | LOC: PCVCCLINIC 09:20 | DX: I10 Essential (primary) hypertension (principal); I35.9 Nonrheumatic aortic valve disorder, unspecified; E78.00 Pure hypercholesterolemia, unspecified; K21.9 Gastro-esophageal reflux disease without esophagitis; R94.31 Abnormal electrocardiogram [ECG] [EKG]; Z79.82 Long term (current) use of aspirin; Z79.899 Other long term (current) drug therapy | CPT/HCPCS: 93005; G0463 ==

== ENCOUNTER → 2017-07-09 | Outpatient (CLI) | payer MEDICARE, OTHER | END | disposition home or self-care (01) | LOC: KCIC 09:55 | DX: R05 Cough (principal); R50.9 Fever, unspecified; R53.83 Other fatigue; Z87.891 Personal history of nicotine dependence | CPT/HCPCS: 71046 ==

== ENCOUNTER → 2017-10-02 | Outpatient (CLI) | payer MEDICARE, OTHER | END | disposition home or self-care (01) | LOC: KCIC MRI 12:18 | DX: I61.2 Nontraumatic intracerebral hemorrhage in hemisphere, unspecified (principal); H91.01 Ototoxic hearing loss, right ear; R90.82 White matter disease, unspecified; I12.9 Hypertensive chronic kidney disease with stage 1 through stage 4 chronic kidney disease, or unspecified chronic kidney disease; E11.22 Type 2 diabetes mellitus with diabetic chronic kidney disease; N18.9 Chronic kidney disease, unspecified; E78.5 Hyperlipidemia, unspecified | CPT/HCPCS: 70551 ==

== ENCOUNTER → 2017-11-21 | Outpatient (CLI) | payer MEDICARE, OTHER ==
[~2017-11-21] MED LIST changes: -METF-620 PO; +METF10007 PO; -METO50TA2 PO; +METO50TA6 PO
--- NOTE | 2017-11-21 09:20 | PCVCIMAG ---
APPROVED REPORT Study performed: 11/21/2017 08:09:06 EXAM: Comprehensive 2D, Doppler, and color-flow Echocardiogram Patient Location: Echo lab Status: routine BSA: 2.19 HR: 69 bpmBP: 138/84 mmHg Rhythm: NSR Other Information Study Quality: Adequate Indications Prosthetic Valve #25 Keo Bovine Aortic Valve 2D Dimensions IVSd: 12.59 (7-11mm)LVOT Diam: 25.00 (18-24mm) LVDd: 44.67 mm PWd: 12.05 (7-11mm)Ascending Ao: 32.77 (22-36mm) LVDs: 29.09 (25-40mm) Left Atrium: 39.98 (27-40mm) Aortic Root: 36.52 mm LV Single Plane 4CH: 60.43 % LV Single Plane 2CH: 62.38 % Biplane EF: 60.5 % Volumes Left Atrial Volume (Systole) Single Plane 4CH: 58.76 mLSingle Plane 2CH: 31.47 mL LA ESV Index: 20.00 mL/m2 Aortic Valve AoV Peak Ilya.: 1.73 m/s AO Peak Gr.: 11.99 mmHgLVOT Max P.62 mmHg LVOT Max V: 0.95 m/s AUSTIN Vmax: 2.72 cm2 Mitral Valve E/A Ratio: 1.2 MV Decel. Time: 182.66 ms MV E Max Ilya.: 0.77 m/s MV A Ilya.: 0.64 m/s IVRT: 72.66 ms Pulmonary Valve PV Peak Ilya.: 1.17 m/sPV Peak Gr.: 5.48 mmHg Pulmonary Vein P Vein S: 0.47 m/sP Vein A: 0.25 m/s P Vein D: 0.50 m/sP Vein A Dur.: 76.1 msec P Vein S/D Ratio: 0.94 Tricuspid Valve TR Peak Ilya.: 2.09 m/s TR Peak Gr.: 17.48 mmHg Left Ventricle The left ventricle is normal size. There is normal LV segmental wall motion. Mild concentric left ventricular hypertrophy. Left ventricular systolic function is normal. The left ventricular ejection fraction is within the normal range. LVEF is 60-65%. Grade II - pseudonormal filling dynamics. Right Ventricle The right ventricle is normal size. The right ventricular systolic function is normal. Atria The left atrium size is normal. The right atrium size is normal. Aortic Valve The aortic valve is normal in structure. Bioprosthetic aortic valve is present. No aortic regurgitation is present. There is no aortic valvular stenosis. Mitral Valve The mitral valve is normal in structure. Mild mitral regurgitation. No evidence of mitral valve stenosis. Tricuspid Valve The tricuspid valve is normal in structure. Trace to mild tricuspid regurgitation. Unable to assess PA pressure. Pulmonic Valve The pulmonary valve is normal in structure. Trace pulmonic regurgitation. Great Vessels The aortic root is normal in size. IVC is not well visualized. Pericardium There is no pericardial effusion. <Conclusion> The left ventricle is normal size. Mild concentric left ventricular hypertrophy. Left ventricular systolic function is normal. Grade II - pseudonormal filling dynamics. The right ventricle is normal size. The left atrium size is normal. Bioprosthetic aortic valve is present. Mild mitral regurgitation. Trace to mild tricuspid regurgitation.
== END | disposition home or self-care (01) ==
LOC: PCVCIMAG 09:09
PROVIDERS: ATTEND Internal Medicine Cardiovascular Disease
DX: I34.0 Nonrheumatic mitral (valve) insufficiency (principal); I35.9 Nonrheumatic aortic valve disorder, unspecified; I10 Essential (primary) hypertension; E78.00 Pure hypercholesterolemia, unspecified; R60.9 Edema, unspecified; R94.31 Abnormal electrocardiogram [ECG] [EKG]; E78.5 Hyperlipidemia, unspecified; Z88.8 Allergy status to other drugs, medicaments and biological substances; Z79.82 Long term (current) use of aspirin; Z79.84 Long term (current) use of oral hypoglycemic drugs; Z79.899 Other long term (current) drug therapy; Z95.2 Presence of prosthetic heart valve
CPT/HCPCS: 93005; 93306; G0463

== ENCOUNTER → 2018-05-22 | Outpatient (CLI) | payer MEDICARE, OTHER ==
[~2018-05-22] MED LIST changes: -HYDR12.53 PO; +HYDR12.575 PO; +OMEP20CA10 PO; -OMEP20CA9 PO
== END | disposition home or self-care (01) ==
LOC: PCVCCLINIC 11:52
PROVIDERS: ATTEND Internal Medicine Cardiovascular Disease
DX: I35.9 Nonrheumatic aortic valve disorder, unspecified (principal); R94.31 Abnormal electrocardiogram [ECG] [EKG]; I10 Essential (primary) hypertension; E78.5 Hyperlipidemia, unspecified; R60.9 Edema, unspecified; F17.200 Nicotine dependence, unspecified, uncomplicated; Z79.899 Other long term (current) drug therapy; Z79.82 Long term (current) use of aspirin; Z88.8 Allergy status to other drugs, medicaments and biological substances; Z79.84 Long term (current) use of oral hypoglycemic drugs
CPT/HCPCS: 93005; G0463

== ENCOUNTER → 2018-11-24 | Outpatient (CLI) | payer MEDICARE, OTHER ==
--- NOTE | 2018-11-24 11:32 | PCVCIMAG ---
APPROVED REPORT Study performed: 11/24/2018 10:09:19 EXAM: Comprehensive 2D, Doppler, and color-flow Echocardiogram Patient Location: Echo lab Room #: 3Status: routine BSA: 2.14 HR: 64 bpmBP: 118/76 mmHg Rhythm: NSR Other Information Study Quality: Adequate Risk Factors: Cardiac Risk Factors: HTN, Hyperlipidemia Indications Aortic Valve Disease AV replacement- #25 Keo bovine bioprosthetic with aortic root and asc Ao replacement with Hemashield graft 2D Dimensions IVSd: 10.65 (7-11mm)LVOT Diam: 24.59 (18-24mm) LVDd: 49.17 mm PWd: 11.48 (7-11mm)Ascending Ao: 33.87 (22-36mm) LVDs: 33.91 (25-40mm) Left Atrium: 39.92 (27-40mm) Aortic Root: 32.27 mm LV Single Plane 4CH: 61.24 % LV Single Plane 2CH: 60.31 % Biplane EF: 62.6 % Volumes Left Atrial Volume (Systole) Single Plane 4CH: 53.15 mLSingle Plane 2CH: 41.14 mL Biplane LA Volume: 48.00 mLLA ESV Index: 23.00 mL/m2 Aortic Valve AoV Peak Ilya.: 1.96 m/s AO Peak Gr.: 16.93 mmHgLVOT Max P.37 mmHg AO Mean Gr.: 9.54 mmHgLVOT Mean P.79 mmHg AO V2 Mean: 1.50 m/sLVOT Max V: 0.80 m/s AO V2 VTI: 44.26 cmLVOT Mean V: 0.64 m/s AUSTIN (VTI): 2.52 [id number] V1 VTI: 23.54 cm AUSTIN Vmax: 1.93 cm2 SV (LVOT): 111.75 mL Mitral Valve E/A Ratio: 1.3 MV Decel. Time: 207.31 ms MV E Max Ilya.: 0.71 m/s MV A Ilya.: 0.54 m/s IVRT: 93.43 ms TDI E/Lateral E': 10.14E/Medial E': 7.89 Medial E' Ilya.: 0.09 m/s Lateral E' Ilya.: 0.07 m/s Pulmonary Valve PV Peak Ilya.: 1.12 m/sPV Peak Gr.: 5.00 mmHg Pulmonary Vein P Vein S: 0.39 m/sP Vein A: 0.23 m/s P Vein D: 0.48 m/sP Vein A Dur.: 100.3 msec P Vein S/D Ratio: 0.81 Tricuspid Valve TR Peak Ilya.: 2.72 m/s TR Peak Gr.: 29.52 mmHg TV Vmax: 0.68 m/sPA Pressure: 37.00 mmHg Left Ventricle The left ventricle is normal size. There is normal LV segmental wall motion. Mild concentric left ventricular hypertrophy. Left ventricular systolic function is normal. The left ventricular ejection fraction is within the normal range. LVEF is 60-65%. Right Ventricle The right ventricle is normal size. The right ventricular systolic function is normal. Atria The left atrium size is normal. The right atrium size is normal. Aortic Valve Normally functioning bioprosthetic valvein the aortic position. #25 Keo bovine bioprosthetic valve is seen. No aortic regurgitation is present. There is no aortic valvular stenosis. Mitral Valve The mitral valve is normal in structure. Trace to mild mitral regurgitation. No evidence of mitral valve stenosis. Tricuspid Valve The tricuspid valve is normal in structure. Trace to mild tricuspid regurgitation with a PA pressure of 37 mmHg Mild pulmonary hypertension. Pulmonic Valve The pulmonary valve is normal in structure. There is no pulmonic valvular regurgitation. Great Vessels The aortic root is normal in size. The ascending aorta is normal in size. Aortic arch is normal in caliber. IVC is normal in size and collapses >50% with inspiration. Pericardium There is no pericardial effusion. There is no pleural effusion. <Conclusion> The left ventricle is normal size. Mild concentric left ventricular hypertrophy. Left ventricular systolic function is normal. The right ventricle is normal size. The left atrium size is normal. #25 Keo bovine bioprosthetic valve is seen. Trace to mild mitral regurgitation. Trace to mild tricuspid regurgitation with a PA pressure of 37 mmHg Mild pulmonary hypertension.
== END | disposition home or self-care (01) ==
LOC: PCVCIMAG 09:59
PROVIDERS: ATTEND Internal Medicine Cardiovascular Disease
DX: I08.3 Combined rheumatic disorders of mitral, aortic and tricuspid valves (principal); I27.20 Pulmonary hypertension, unspecified; I11.9 Hypertensive heart disease without heart failure; R40.0 Somnolence; E78.5 Hyperlipidemia, unspecified; F17.200 Nicotine dependence, unspecified, uncomplicated; Z79.82 Long term (current) use of aspirin
CPT/HCPCS: 93005; 93306; G0463

== ENCOUNTER → 2019-01-11 | Outpatient (CLI) | payer MEDICARE, OTHER ==
--- NOTE | 2019-01-11 12:42 | KCIC ---
Bone densitometry 01/11/2019 10:10 AM Indication: Screening exam Comparison Study: None available. Discussion: Bone Densitometry was performed with dual photon absorption of the lumbar spine and proximal left femur Lumbar Spine: Bone average density is 1.228 g/cm2 for L1-L4. T-Score is 1.6. Proximal left femur: Bone average density is 1.00g/cm2. T-Score is 0.5. IMPRESSION: Normal bone mineral density Note: Definitions established by the World Health Organization: Normal: T-score is -1.0 or above. Osteopenia: T-score is between -1.0 and -2.5. Osteoporosis: T-score is -2.5 or below. Electronically signed by: Roc Sr MD (01/11/2019 12:39 PM) [facility]
== END | disposition home or self-care (01) ==
LOC: KCIC DEXA 10:04
PROVIDERS: ATTEND Nurse Practitioner Family
DX: E83.52 Hypercalcemia (principal); Z78.0 Asymptomatic menopausal state
CPT/HCPCS: 77080

== ENCOUNTER → 2019-11-09 | Outpatient (CLI) | payer MEDICARE, OTHER ==
[~2019-11-09] MED LIST changes: -MECL12.52 PO; +MECL12.573 PO; -OMEP20CA10 PO; +OMEP20CA16 PO
== END | disposition home or self-care (01) ==
LOC: LAB 14:58
PROVIDERS: ATTEND Surgery
DX: Z20.828 Contact with and (suspected) exposure to other viral communicable diseases (principal)
CPT/HCPCS: U0003-CS

== ENCOUNTER → 2019-11-12 | Day surgery (SDC) | payer MEDICARE, OTHER ==
[~2019-11-12] MED LIST changes: +DULA0.75 SQ; +EMPA10TA PO; +INSU100I27 SQ; +LIDOCAINE 1%/EPI 1:100,000 20 ML VIAL. INJ ONE
[2019-11-12 11:25] VITALS: BP 125/71
--- NOTE | 2019-11-12 12:41 | PDOC4 ---
Operative Note Operative Note Date: 11/12/2019 at 1239 Preoperative diagnosis: Left flank sebaceous cyst, skin tags x3 Postoperative diagnosis: Same Procedure: Excision of left flank sebaceous cyst excision of skin tags x3 Surgeon: Tristen Specimens: Skin tags x3 and sebaceous cyst left flank Dictation: Patient is 63-year-old female has had a recurrent sebaceous cyst on the left flank that is been drained at least once. She also has 3 skin tags one on the left flank one in the left lower back one in the right lower back that she wants removed. Procedure of excision and was explained to the patient det ail was benefits were also discussed occluding bleeding infection alternatives to this procedure also discussed with the patient who seemed to understand and gave both verbal and written consent to have the procedure performed. Patient was taken to the minors room placed in the prone positioning area over the left flank sebaceous cyst was prepped and draped with usual sterile fashion using ChloraPrep. Area around the cyst was injected with 1% lidocaine with epinephrine once this anesthetized incision was made with 15 blade scalpel carried down through the subcutaneous tissue the mass was excised completely with 15 blade scalpel and sent for pathology. The wound was closed in a single layer 4-0 subcuticular Monocryl Mastisol Steri-Strips and island dressings were applied. Skin tags were all removed in similar manner injecting 1% lidocaine with epinephrine at the base the skin tag was excised with 15 blade scalpel and then cauterized with handheld cautery and dressed with a Band-Aid. Patient tolerated procedure well was discharged home in stable condition all sponge instrument needle counts listed as correct estimated blood loss 5 mL. CARLY LOPEZ MD Nov 12, 2019 12:41
--- NOTE | 2019-11-12 12:44 | DISCH ---
DISCHARGE INSTRUCTIONS Condition on Discharge Condition on Discharge: Stable Activity After Discharge Activity Instructions for Disc: Activity as tolerated Diet after Discharge Diet after Discharge: Regular Wound Incision Care Other wound/incision instructi: May shower in 24 hours Contacting the DRJuanpablo after DC Call your doctor for: If your condition worsens Follow-Up Follow up with: Follow-up with Dr. Lopez in 2 weeks CARLY LOPEZ MD Nov 12, 2019 12:44
--- NOTE | 2019-11-16 11:07 | PATHOLOGY ---
[facility] Accession Number: [id number] . 01 Material submitted: . PART A: flank - LEFT FLANK MASS. Modifiers: left PART B: chest - LEFT CHEST SKIN TAG. Modifiers: left PART C: back - LEFT BACK SKIN TAG. Modifiers: left PART D: back - RIGHT BACK SKIN TAG. Modifiers: right . 02 Diagnosis: A. Segments of skin and subcutaneous tissue, left flank mass: - Scar with chronic inflammation and focal foreign body giant cell reaction. . B. Skin, left chest: - Polypoid compound nevus. . C. Skin, left back: - Neurofibroma. . D. Skin, right back: - Cutaneous tag. ([facility] 11/16/2019) [facility] 11/16/2019 0815 Local . 02 Comment: There is no evidence of malignancy. ([facility] 11/16/2019) . 02 Electronically signed: . Erwin Thapa MD, Pathologist NPI- [id number] . 01 Gross description: . A. Received in formalin labeled "Nesha Brewster, left flank mass" is a portion of sanchez-white to yellow sanchez soft tissue measuring 2.2 x 2.0 x 1.2 cm. Upon sectioning, the cut surfaces are sanchez-white and fibrotic. Also present within the container is an ellipse of sanchez-white skin measuring 1.6 x 0.4 x 0.2 cm, which is grossly unremarkable. Health Services Information Specialist sections of the specimen are submitted in cassette A1. . B. Received in formalin labeled "Nesha Brewster, left chest skin tag" is a raised red-brown skin lesion measuring 0.4 x 0.4 x 0.2 cm. The margin is inked and the specimen is submitted without sectioning in B1. . C. Received in formalin labeled "Nesha Brewster, left back skin tag" is a raised sanchez-white skin lesion measuring 1.0 x 0.7 x 0.6 cm. The margin is inked and the specimen is bisected and submitted in C1. . D. Received in formalin labeled "Nesha Brewster, 4" and further labeled on the requisition as "right back skin tag" is a raised sanchez-white skin lesion measuring 0.7 x 0.4 x 0.3 cm. The margin is inked and the specimen is submitted without sectioning in D1. ([facility]; 11/14/2019) [facility] 11/16/2019 0813 Local . 02 Pathologist provided ICD-10: L90.5, L98.9, D22.5, D36.17, L91.8 . 02 CPT . 583624, 574680, 123521, 826393 Specimen Comment: A courtesy copy of this report has been sent to [phone], [phone] Specimen Comment: 2230 Specimen Comment: Report sent to / DR LANETTE TENORIO Performed at: 01 [facility] [address], [place] [id number] MD Segundo Pitts MD Phone: [phone] Performed at: 02 [facility] [address], [place] [id number] MD Erwin Thapa MD Phone: [phone]
== END | disposition home or self-care (01) ==
LOC: SURG 10:59
PROVIDERS: ATTEND Surgery
DX: L72.3 Sebaceous cyst (principal); D36.10 Benign neoplasm of peripheral nerves and autonomic nervous system, unspecified; E66.9 Obesity, unspecified; Z68.35 Body mass index [BMI] 35.0-35.9, adult; I11.0 Hypertensive heart disease with heart failure; I50.9 Heart failure, unspecified; E78.5 Hyperlipidemia, unspecified; Z87.891 Personal history of nicotine dependence; Z79.82 Long term (current) use of aspirin; Z79.899 Other long term (current) drug therapy; Z88.8 Allergy status to other drugs, medicaments and biological substances
CPT/HCPCS: 11200; 11402; 88304; 88305; J3490

== ENCOUNTER → 2020-07-14 | Outpatient (CLI) | payer MEDICARE, OTHER ==
[2019-11-12 11:25] VITALS: BP 125/71
[~2020-07-14] MED LIST changes: -LIDOCAINE 1%/EPI 1:100,000 20 ML VIAL. INJ ONE; -MECL12.573 PO; +MECL12.582 PO
--- NOTE | 2020-07-14 14:23 | KCIC ---
Bilateral digital screening mammograms with 3-D tomosynthesis: Reason for examination: Routine screening. Comparison is made to previous study dated 04/26/2016. Bilateral mammograms in CC and oblique projections were obtained with 2-D imaging and 3-D tomosynthes is imaging on a Siemens Inspiration unit and reviewed on the workstation. Interpretation was made wit h the benefit of CAD. The skin and nipples show no abnormalities. No abnormal axillary lymph nodes are seen. The breast par enchyma shows scattered fatty and fibroglandular density. (Breast density: Category B.) There appear to be small nodules at approximately the 2:00 A position of the left breast and 10:00 A position of t he right breast. Further evaluation with ultrasound is recommended. There are no other dominant megan s, suspicious calcifications or architectural distortion. Benign calcifications are present. Impression: Nodular densities at approximately the 2:00 A position of the left breast and 10:00 A position of the right breast. Recommend further evaluation with ultrasound. BI-RAD Category 2: Benign. "Our facility is accredited by the [employer] Mammography Program." This patient's information has been entered into a reminder system for the patient to be notified wit h the results of her examination and a target date for the next mammogram. Electronically signed by: Analilia Roach MD (07/14/2020 2:21 PM) [facility]
== END ==
LOC: KCIC MAMMO 12:22
PROVIDERS: ATTEND Family Medicine
DX: Z12.31 Encounter for screening mammogram for malignant neoplasm of breast (principal); N63.21 Unspecified lump in the left breast, upper outer quadrant; N63.11 Unspecified lump in the right breast, upper outer quadrant
CPT/HCPCS: 77063; 77067

== ENCOUNTER → 2020-07-26 | Outpatient (CLI) | payer MEDICARE, OTHER ==
[2019-11-12 11:25] VITALS: BP 125/71
--- NOTE | 2020-07-26 13:09 | KCIC ---
Bilateral breast ultrasound: Reason for examination: Nodular densities on screening mammogram. Comparison is made to mammographic exam dated 07/14/2020. Ultrasound examination of the breasts and axilla was performed bilaterally. In the right breast at 10:00 position 2 cm from the nipple, there is a small focus of ductal ectasia and fibrocystic type change measuring approximately 7 mm in greatest dimension which shows no abnorma l vascularity. No other cystic or solid nodules are seen. No abnormal appearing lymph nodes are seen in the right axilla. The left breast shows some cystic ductal ectasia at the 2:00 position 5 cm from the nipple measuring 7 mm in size. No other cystic or solid nodules are seen. There is also some ductal ectasia at the 2:0 0 position 3 cm from the nipple. No abnormal lymph nodes are seen in the axilla. IMPRESSION: Fibrocystic type changes at the 10:00 position of the right breast. Focal ductal ectasia at the 2:00 position of the left breast. No suspicious-appearing nodules are seen. Recommend 6 month follow-up with bilateral mammograms and ultrasound. BI-RADS Category 3: Probably Benign. "Our facility is accredited by the [employer] Mammography Program." This patient's information has been entered into a reminder system for the patient to be notified wit h the results of her examination and a target date for the next mammogram. Electronically signed by: Analilia Roach MD (07/26/2020 1:07 PM) [id number]
== END ==
LOC: KCIC US 12:22
PROVIDERS: ATTEND Family Medicine
DX: N60.42 Mammary duct ectasia of left breast (principal)
CPT/HCPCS: 76641

== ENCOUNTER → 2021-02-07 | Outpatient (CLI) | payer MEDICARE, OTHER ==
[2019-11-12 11:25] VITALS: BP 125/71
--- NOTE | 2021-02-07 11:21 | KCIC ---
Bilateral diagnostic digital mammograms with 3-D tomosynthesis: Reason for examination: Follow-up nodules. Comparison is made to previous studies dated 07/14/2020 and 04/26/2016. Bilateral mammograms in CC and oblique projections were obtained with 2-D imaging and 3-D tomosynthes is imaging on a Siemens Inspiration unit and reviewed on the workstation. Interpretation was made wit h the benefit of CAD. The skin and nipples show no abnormalities. No abnormal axillary lymph nodes are seen. The breast par enchyma shows scattered fatty and fibroglandular density. (Breast density: Category B.) There appears to be a small nodular density at approximately the 12:00 position of the right breast 6 cm from the nipple. There also continues to be a small nodular density at approximately the 2:00 position anterio rly in the left breast. There is a new nodular density at approximately the 7:00 position 8 cm from t he nipple measuring approximately 4.7 mm in size. Further evaluation with ultrasound will follow. Ishmael ign calcifications are present. Impression: Nodular densities at the 12:00 position of the right breast 4 cm from the nipple, at the 2:00 positio n anteriorly in the left breast and at the 7:00 position at mid depth in the left breast. Ultrasound to follow. BI-RAD Category 0: Incomplete. Needs additional imaging evaluation. Bilateral breast ultrasound: Comparison is made to previous study dated 07/26/2020. Ultrasound examination was performed of the breasts and axilla bilaterally. In the right breast, there is some ductal ectasia at the 10:00 position 2 cm from the nipple and in t he retroareolar position. At the 12:00 position 7 cm from the nipple, there appears to be a 9.6 mm hy poechoic circumscribed lesion lying in parallel orientation consistent with a small fibroadenoma. The re also appears to be a small 2.7 mm hypoechoic nodule consistent with fat necrosis at the 11:00 posi tion 4.5 cm from the nipple. No abnormal appearing lymph nodes are seen in the right axilla. In the left breast, there is some ductal ectasia at the 2:00 position 5 cm from the nipple. There is a small 2.6 mm cystic lesion at the 2:00 position 3 cm at the 7:00 position 9 cm from the nipple, the re is a small 7.3 mm hypoechoic fibrocystic type lesion seen. There is ductal ectasia in the retroare olar position. No abnormal appearing lymph nodes are seen in the left axilla. IMPRESSION: 9.6 mm hypoechoic circumscribed nodule consistent with fibroadenoma at the 12:00 position of the righ t breast 7 cm from the nipple. Benign-appearing fibrocystic lesion at the 7:00 position of the left breast. Recommend 6 month follow-up with bilateral breast ultrasound. BI-RADS Category 3: Probably Benign. "Our facility is accredited by the [employer] Mammography Program." This patient's information has been entered into a reminder system for the patient to be notified wit h the results of her examination and a target date for the next mammogram. Electronically signed by: Analilia Roach MD (02/07/2021 11:19 AM) [id number]
== END ==
LOC: KCIC MAMMO 07:52
PROVIDERS: ATTEND Family Medicine
DX: N63.11 Unspecified lump in the right breast, upper outer quadrant (principal); N64.89 Other specified disorders of breast; R92.8 Other abnormal and inconclusive findings on diagnostic imaging of breast
CPT/HCPCS: 76641; 77066; G0279; 77062

== ENCOUNTER → 2021-03-15 | Outpatient (CLI) | payer MEDICARE, OTHER ==
[2019-11-12 11:25] VITALS: BP 125/71
--- NOTE | 2021-03-15 15:46 | KCIC ---
EXAM: Cervical spine, 6 views. HISTORY: Pain. COMPARISON: None. FINDINGS: 6 views of the cervical spine are obtained. There is straightening of cervical lordosis. Th ere is mild multilevel endplate remodeling. There is mild multilevel facet arthropathy. There is no f racture. There are median sternotomy wires. IMPRESSION: Mild multilevel degenerative change. No acute osseous finding. Electronically signed by: Zee Hobson MD (03/15/2021 3:44 PM) [id number]
== END ==
LOC: KCIC 15:20
PROVIDERS: ATTEND Family Medicine
DX: M47.812 Spondylosis without myelopathy or radiculopathy, cervical region (principal); M48.8X2 Other specified spondylopathies, cervical region
CPT/HCPCS: 72050

== ENCOUNTER → 2021-05-15 | Outpatient (CLI) | payer MEDICARE, OTHER ==
[2019-11-12 11:25] VITALS: BP 125/71
[~2021-05-15] MED LIST changes: -EMPA10TA PO; +EMPA10TA3 PO; +LIDOCAINE 1% Multi-Dose 20 ML VIAL. INJ ONE
--- NOTE | 2021-05-15 09:42 | RAD ---
EXAM: Sonographic guided right breast biopsy; right breast biopsy clip placement; right breast postbi opsy mammogram. HISTORY: 65-year-old female presents for sonographic guided biopsy of a 10 mm lesion within the 12:00 position of the right breast demonstrated on a sonogram performed 02/07/2021. TECHNIQUE: The risks of the procedure were discussed with the patient and written and verbal consent was obtained. A timeout was performed. Sonographic imaging of the right breast was performed and the lesion of concern at the 12:00 position was identified. The skin overlying this region was sterilely prepped, draped and infiltrated with 1 percent lidocaine. Multiple core samples were obtained through the lesion of concern with sonographic guidance. A biopsy clip was advanced into the biopsy bed. Man ual compression was maintained until hemostasis was achieved. A sterile bandage was placed. A post bi opsy mammogram demonstrates a biopsy clip in expected position. The patient tolerated the procedure w ithout difficulty and was discharged in stable condition. IMPRESSION: Successful sonographic guided biopsy of a 10 mm lesion within the 12:00 position of the r ight breast and biopsy clip placement. An addendum to this report will be submitted when pathology re sults are available. Electronically signed by: Zee Hobson MD (05/15/2021 9:39 AM) [id number]
--- NOTE | 2021-05-16 17:07 | PATHOLOGY ---
[facility] Accession Number: [id number] . 01 Material submitted: . breast - RIGHT BREAST MASS. Modifiers: right . 02 Diagnosis: Breast tissue, right breast mass 12:00, 7 cm from nipple, needle biopsies: - Fibroadenoma. (JP:meng; 05/16/2021) [facility] 05/16/2021 1153 Local . 02 Comment: There is no evidence of malignancy. (JPM:outpatient case manager; 05/16/2021) . 02 Electronically signed: . Erwin Thapa MD, Pathologist NPI- [id number] . 01 Gross description: . The specimen is received in formalin, labeled "Nesha Brewster, right breast 1200, 7 cm FN". Received are 6 needle cores of fibrofatty tissue measuring 1.2 x 1.0 x 0.2 cm in aggregate dimensions. The specimen is submitted entirely in cassettes A1-A3. The specimen is collected at 0915 and placed into formalin at 0915 on 05/15/2021. The specimen is removed from formalin at 1840 on 05/15/2021. The total formalin fixation time is 9 hours and 25 minutes. ([facility]; 05/15/2021) NRI/NRI 05/15/2021 1533 Local . 02 Pathologist provided ICD-10: D24.1 . 02 CPT . 976556 Specimen Comment: A courtesy copy of this report has been sent to [phone] Specimen Comment: Report sent to Performed at: [address], [place], [place] [id number] MD Jamie Varma MD Phone: [phone] Performed at: 02 [facility] [address] [place], [place] [id number] MD Erwin Thapa MD Phone: [phone]
== END | disposition home or self-care (01) ==
LOC: US 08:32
PROVIDERS: ATTEND Surgery
DX: R92.8 Other abnormal and inconclusive findings on diagnostic imaging of breast (principal); N63.11 Unspecified lump in the right breast, upper outer quadrant; I10 Essential (primary) hypertension; E78.00 Pure hypercholesterolemia, unspecified; E66.9 Obesity, unspecified; K21.9 Gastro-esophageal reflux disease without esophagitis; G47.30 Sleep apnea, unspecified; E11.9 Type 2 diabetes mellitus without complications; E03.9 Hypothyroidism, unspecified; M19.90 Unspecified osteoarthritis, unspecified site; Z87.891 Personal history of nicotine dependence; Z79.82 Long term (current) use of aspirin; Z79.4 Long term (current) use of insulin; Z79.899 Other long term (current) drug therapy; Z90.49 Acquired absence of other specified parts of digestive tract; Z98.890 Other specified postprocedural states; Z88.8 Allergy status to other drugs, medicaments and biological substances
CPT/HCPCS: 19083; 77065; A4648; C1819